=== PATIENT | female | born 1960 | race African-American/Black ===

== ENCOUNTER → 2016-12-12 | Outpatient (CLI) | payer MEDICAID | END | disposition home or self-care (01) | LOC: CHF HDHVI 09:32 | PROVIDERS: ATTEND Internal Medicine Cardiovascular Disease | DX: Z01.810 Encounter for preprocedural cardiovascular examination (principal); I10 Essential (primary) hypertension; K80.80 Other cholelithiasis without obstruction | CPT/HCPCS: 93306 ==

== ENCOUNTER → 2016-12-12 | Outpatient (CLI) | payer MEDICAID | END | disposition home or self-care (01) | LOC: Rad HDHVI 11:02 | PROVIDERS: ATTEND Internal Medicine Cardiovascular Disease | DX: Z01.810 Encounter for preprocedural cardiovascular examination (principal); M25.561 Pain in right knee; M41.86 Other forms of scoliosis, lumbar region; M16.0 Bilateral primary osteoarthritis of hip | CPT/HCPCS: 72110; 73562 ==

== ENCOUNTER → 2016-12-13 | Outpatient (CLI) | payer MEDICAID ==
[~2016-12-13] VITALS: Ht 170.2 cm; Wt 81.6 kg
[~2016-12-13] MED LIST: ADENOSINE 68 MG in GIVE UN-DILUTED 0 ML IV SCH
== END | disposition home or self-care (01) ==
LOC: Rad HDHVI 09:33
PROVIDERS: ATTEND Internal Medicine Cardiovascular Disease
DX: Z01.810 Encounter for preprocedural cardiovascular examination (principal); I10 Essential (primary) hypertension; Z82.49 Family history of ischemic heart disease and other diseases of the circulatory system
CPT/HCPCS: 78452; 93005; 93017; 96374; 96375; A9500; J0153

== ENCOUNTER 2018-11-26 16:09 | Emergency (ER) | payer MEDICAID ==
[~2018-11-26] VITALS: Ht 172.7 cm; Wt 90.7 kg
[2018-11-26 16:27] VITALS: BP 154/89
== END 2018-11-26 17:23 | disposition home or self-care (01) ==
LOC: ER 16:14
DX: Z20.7 Contact with and (suspected) exposure to pediculosis, acariasis and other infestations (principal); I10 Essential (primary) hypertension

== ENCOUNTER 2019-01-23 09:34 | Emergency (ER) | payer MEDICAID ==
[~2019-01-23] VITALS: Ht 170.2 cm; Wt 77.1 kg
[2019-01-23] MEDS ORDERED: cloNIDine HCL 0.1 MG TAB ONE (09:45)
[2019-01-23] MEDS ORDERED: cloNIDine HCL 0.1 MG TAB PO ONE (10:00)
[2019-01-23 11:48] VITALS: BP 155/83
== END 2019-01-23 11:54 | disposition home or self-care (01) ==
LOC: ER 09:34
DX: K52.9 Noninfective gastroenteritis and colitis, unspecified (principal); I10 Essential (primary) hypertension; Z76.0 Encounter for issue of repeat prescription
CPT/HCPCS: 93005

== ENCOUNTER 2019-10-12 14:28 | Inpatient (IN) | payer MEDICAID ==
[~2019-10-12] VITALS: Ht 170.2 cm; Wt 83.6 kg
[2019-10-12 15:39] LABS: Basophils # (auto) 0.1 uL; Basophils % (auto) 0.6 % (0.0-2.0); Eosinophils # (auto) 0 uL; Hematocrit 51.1 % (36.0-46.0); Hemoglobin 17.3 g/dL (12.2-16.2); Lymphocytes # (auto) 3.7 uL; Lymphocytes % (auto) 23.6 % (10.0-50.0); Mean Corpuscular Hemoglobin 31.4 pg (28.0-32.0); Mean Corpuscular Hgb Conc. 33.9 g/dL (32.0-36.0); Mean Corpuscular Volume 92.7 fL (80.0-100.0); Monocytes # (auto) 0.8 uL; Monocytes % (auto) 4.9 % (0.0-12.0); Neutrophils % (auto) 70.9 % (37.0-80.0); Nucleated Red Blood Cells % 0.3 %; Platelet Count (auto) 314 10^3/uL (140-450); Red Blood Cells 5.52 10^6/uL (4.0-5.20); Red Cell Distribution Width 13.3 % (11.8-14.3); White Blood Cell 15.6 10^3/uL (4.4-10.8)
[2019-10-12 15:48] LABS: Albumin 4.4 g/dL (3.4-5.0); BUN/Creatinine Ratio 15.4; Calcium 9.4 mg/dL (8.5-10.1)
[2019-10-12] MEDS ORDERED: SODIUM CHLORIDE 0.9% 1,000 ML IVB ONE (15:49)
[2019-10-12 15:51] LABS: Bilirubin, Total 1.1 mg/dL (0.2-1.0); Total Protein 9.1 g/dL (6.4-8.2)
[2019-10-12 15:55] LABS: Potassium 2.9 mmol/L (3.5-5.1)
[2019-10-12] MEDS ORDERED: PROCHLORPERAZINE EDISYLATE 5 MG/ML 2ML VIAL IV ONE (16:00)
[2019-10-12] MEDS ORDERED: POTASSIUM CHL 20MEQ/100ML 100 ML IV ONE (16:15)
[2019-10-12] MEDS ORDERED: HYDROmorphone HCL 2 MG/ML VL IV ONE (17:00)
[2019-10-12] MEDS ORDERED: NITROGLYCERIN 0.4 MG SL TAB SL PRN (20:15)
[2019-10-12] MEDS ORDERED: MORPHINE SULF INJ 2 MG/ML SYRINGE 1ML IV PRN (20:15)
[2019-10-12] MEDS: SOD CHL 0.9%/ KCL 20MEQ 1,000 ML IV SCH (20:44)
--- NOTE | 2019-10-12 21:22 | NUR ---
MS admit from ER TRAFALGAR,KAMRAN admitted to [facility]. Patient oriented to DEBORAH BAIRES, RN primary RN, unit, room, bed, and unit policies regarding patient care and visiting hours. Patient is alert and oriented, complains of abdominal pain 10/10. Will administer due pain medications. Explained plan of care to patient and to call for assistance as needed, call light placed within reach. All questions and concerns addressed, patient verbalized understanding. Will continue to monitor.
[2019-10-12 21:30] VITALS: BP 168/115
[2019-10-12] MEDS: metroNIDAZOLE 500MG/100ML 100 ML IV SCH (22:19)
[2019-10-12] MEDS: FAMOTIDINE (10MG/ML) 2ML VL IV SCH (22:22)
[2019-10-12] MEDS: hydrALAZINE HCL 20 MG/ML VL IV PRN (22:49)
[2019-10-12 22:57] VITALS: BP 168/115
[2019-10-12] MEDS: ONDANSETRON HCL 4 MG/2 ML VIAL IV PRN (23:00)
[2019-10-12] MEDS: MORPHINE SULF INJ 2 MG/ML SYRINGE 1ML IV PRN (23:00)
[2019-10-12 23:02] LABS: Urine Bacteria FEW /hpf (None Seen); Urine Blood Negative /uL (Negative); Urine Hyaline Cast FEW /lpf (0 - 2); Urine Mucus FEW (None Seen); Urine Specific Gravity 1.021 (1.001-1.035); Urine WBC 6 /hpf (0 - 5)
[2019-10-12 23:09] LABS: Alcohol, Urine < 3.0 mg/dL (0-5); Amphetamine Screen, Urine NEGATIVE (NEGATIVE); Barbiturate Scree,Urine NEGATIVE (NEGATIVE); Benzodiazephine Screen, Urine POSITIVE (NEGATIVE); Cannabinoid Screen, Urine NEGATIVE (NEGATIVE); Cocaine Screen, Urine NEGATIVE (NEGATIVE); Opiate Scree,Urine NEGATIVE (NEGATIVE); Phencyclidine Screen, Urine NEGATIVE (NEGATIVE)
[2019-10-13 00:02] VITALS: BP 141/86
[2019-10-13] MEDS ORDERED: CLON0.2D6 PO (00:53)
[2019-10-13] MEDS: MORPHINE SULF INJ 2 MG/ML SYRINGE 1ML IV PRN ×4 (05:00→23:17)
[2019-10-13 05:17] VITALS: BP 137/82
--- NOTE | 2019-10-13 05:18 | NUR ---
IV Removal/Insertion Discontinued 20g IV to the Right AC with clean sterile technique, catheter tip fully intact. Pressure dressing applied to site. NOTE:Inserted 22g IV to the Left hand. Patient tolerated procedure well.
[2019-10-13 05:58] LABS: Basophils # (auto) 0.1 uL; Basophils % (auto) 0.5 % (0.0-2.0); Eosinophils # (auto) 0 uL; Eosinophils % (auto) 0.1 % (0.0-7.0); Hemoglobin 14.9 g/dL (12.2-16.2); Lymphocytes # (auto) 3.3 uL; Lymphocytes % (auto) 26.9 % (10.0-50.0); Mean Corpuscular Volume 91.2 fL (80.0-100.0); Monocytes # (auto) 0.7 uL; Neutrophils # (auto) 8.1 uL; Neutrophils % (auto) 66.5 % (37.0-80.0); Nucleated Red Blood Cells % 0.3 %; Platelet Count (auto) 247 10^3/uL (140-450); Red Blood Cells 4.82 10^6/uL (4.0-5.20); Red Cell Distribution Width 13.3 % (11.8-14.3); White Blood Cell 12.2 10^3/uL (4.4-10.8)
[2019-10-13] MEDS: metroNIDAZOLE 500MG/100ML 100 ML IV SCH (06:02)
[2019-10-13] MEDS: SOD CHL 0.9%/ KCL 20MEQ 1,000 ML IV SCH ×2 (06:15→15:34)
[2019-10-13 06:19] LABS: Albumin 3.7 g/dL (3.4-5.0); BUN/Creatinine Ratio 19.3; Bilirubin, Total 0.9 mg/dL (0.2-1.0); Calcium 8.5 mg/dL (8.5-10.1); Magnesium 2.8 mg/dL (1.6-2.6); Total Protein 7.4 g/dL (6.4-8.2)
--- NOTE | 2019-10-13 07:15 | NUR ---
RE: Patient belongings Patient's purse with balbuena in it sent home with the patient's son per RYAN Danielson RN.
[2019-10-13 09:00] VITALS: BP 139/88
[2019-10-13] MEDS ORDERED: LEVOFLOXACIN 500MG 100 ML IV SCH (10:00)
[2019-10-13] MEDS: FAMOTIDINE (10MG/ML) 2ML VL IV SCH ×2 (10:04→21:57)
[2019-10-13] MEDS: ONDANSETRON HCL 4 MG/2 ML VIAL IV PRN ×3 (10:16→23:18)
--- NOTE | 2019-10-13 11:30 | NUR ---
MD was at bedside - Dr. Escalante Rectal examine performed by . This RN was at bedside during examine. Patient tolerated well.
[2019-10-13] MEDS ORDERED: POTASSIUM CHL 20 Meq TABLET PO ONE (11:45)
[2019-10-13 12:30] VITALS: BP 141/101
[2019-10-13] MEDS ORDERED: DOCUSATE SOD 100 MG CAP PO PRN (13:15)
--- NOTE | 2019-10-13 15:38 | NUR ---
Patient tolerated lunch meal well Patient denies N/V.
[2019-10-13 17:00] VITALS: BP 147/86
--- NOTE | 2019-10-13 17:15 | NUR ---
PRN pain medication administered per MD order Patient reports pain in the upper medial abdomen. Patient guarding abdomen and moaning. Medication administered per MD order. Respirations even and unlabored respirations, no distress noted. Call light within reach.
--- NOTE | 2019-10-13 18:39 | NUR ---
Closing note patient resting in bed with even and unlabored respirations; eyes closed, no distress noted. Fall precautions in place with bed in lowest locked position with x2 side rails up and call light within reach.
--- NOTE | 2019-10-13 19:29 | NUR ---
Care endorsed to JANETTE Silva.
--- NOTE | 2019-10-13 19:55 | NUR ---
RECEIVED PATIENT FORM DAY SHIFT RN. PATIENT RESTING IN BED. NO S/S OF DISTRESS NOTED. C/O PAIN @ 10/10 AFTER PAIN MEDICATION EARLIER. PATIENT UNDERSTOOD THE SCHEDULE OF PAIN MANAGEMENT AND WILL COME BACK FOR PAIN MEDICATION WHEN THE TIME IS DUE AND PER PATIENT REQUESTS. PATIENT DID C/O ITCHING AFTER MORPHINE. PAGED HOSPITALIST FOR MEDICATION. PATIENT REFUSED SCD FOR NOW. WILL TRY IT LATER. POC INSTRUCTED AND ENCOURAGED PATIENT TO CALL FOR AIR ANTISUBMARINE OFFICER IF NEEDED. BED IN LOWEST POSITION WITH SIDE RAILS UP X 2. CALL DELGADO WITHIN REACH. ALARM ON. CONTINUE TO MONITOR FOR CHANGES Q1H AND PRN.
--- NOTE | 2019-10-13 19:55 | NUR ---
MD Called/paged HOSPITALIST called re:PATIENT ITCHING AFTER MORPHINE, MAY NEED MEDICATION. Waiting for call back. Continue care.
--- NOTE | 2019-10-13 19:57 | NUR ---
HOSPITALIST returned call TELEGRAPH REPEATER TECHNICIAN JEN returned call, updated on patient status and reason for call, orders received. BENADRYL 25MG Q4HR PRN. Continue care.
[2019-10-13] MEDS: diphenhdrAMINE HCL 50 MG/1 ML VL IV PRN (20:35)
--- NOTE | 2019-10-13 21:36 | NUR ---
PATIENT STATED HER ITCHING GETTING BETTER AFTER MEDICATION. CONTINUE TO MONITOR.
[2019-10-13 22:57] VITALS: BP 147/141
--- NOTE | 2019-10-13 23:21 | NUR ---
MEDICATED PATIENT FOR PAIN @ 08/20. CONTINUE TO MONITOR.
[2019-10-14] MEDS: diphenhdrAMINE HCL 50 MG/1 ML VL IV PRN ×3 (01:00→22:22)
--- NOTE | 2019-10-14 01:05 | NUR ---
MEDICATED PATIENT FOR ITCHING. CONTINUE TO MONITOR.
[2019-10-14] MEDS: SOD CHL 0.9%/ KCL 20MEQ 1,000 ML IV SCH (02:49)
--- NOTE | 2019-10-14 03:40 | NUR ---
PATIENT SLEEPING. NO S/S OF DISTRESS NOTED. CONTINUE CARE.
[2019-10-14] MEDS: MORPHINE SULF INJ 2 MG/ML SYRINGE 1ML IV PRN ×3 (05:29→22:23)
[2019-10-14] MEDS: ONDANSETRON HCL 4 MG/2 ML VIAL IV PRN (05:39)
--- NOTE | 2019-10-14 05:40 | NUR ---
PATIENT C/O PAIN @ 08/20. MEDICATED PATIENT ORDERED WITH NAUSEA MEDICATION AND ITCHING MEDICATION. CONTINUE TO MONITOR.
[2019-10-14 05:50] VITALS: BP 171/97
[2019-10-14 06:14] LABS: Basophils # (auto) 0 uL; Basophils % (auto) 0.4 % (0.0-2.0); Eosinophils # (auto) 0.1 uL; Eosinophils % (auto) 0.7 % (0.0-7.0); Hematocrit 40.2 % (36.0-46.0); Hemoglobin 13.7 g/dL (12.2-16.2); Lymphocytes # (auto) 2.6 uL; Lymphocytes % (auto) 36.8 % (10.0-50.0); Mean Corpuscular Hemoglobin 31.6 pg (28.0-32.0); Mean Corpuscular Volume 92.9 fL (80.0-100.0); Monocytes # (auto) 0.4 uL; Monocytes % (auto) 5.7 % (0.0-12.0); Neutrophils # (auto) 3.9 uL; Neutrophils % (auto) 56.4 % (37.0-80.0); Platelet Count (auto) 209 10^3/uL (140-450); Red Blood Cells 4.33 10^6/uL (4.0-5.20); Red Cell Distribution Width 13.3 % (11.8-14.3)
[2019-10-14 06:33] LABS: Albumin 3.3 g/dL (3.4-5.0); Potassium 3.4 mmol/L (3.5-5.1)
[2019-10-14 06:36] LABS: BUN/Creatinine Ratio 9.7; Bilirubin, Total 0.5 mg/dL (0.2-1.0); Total Protein 6.4 g/dL (6.4-8.2)
[2019-10-14] MEDS: hydrALAZINE HCL 20 MG/ML VL IV PRN (08:27)
--- NOTE | 2019-10-14 08:27 | NUR ---
OPENING SHIFT NOTE: PATIENT RESTING IN BED, AWAKE A/OX4 FAMILY AT BEDSIDE. PER NOC RN REPORT, BP RAN 171/97 AND TO RE-CHECK. THIS RN REASSESSED 194/113 HR 98. ADMINISTERED PRN HYDRALAZINE ORDERED. PATIENT C/O HEADACHE AND ITCHING. EDUCATED ON NOC ADMINISTRATION OF BENADRYL, AND WE WILL CONTINUE TO MONITOR. BEDSIDE COMMODE EMPTIED. CALL LIGHT WITHIN REACH, FALL PRECAUTIONS IN PLACE WILL CONTINUE TO MONITOR.
[2019-10-14 09:00] VITALS: BP 194/112
--- NOTE | 2019-10-14 09:29 | NUR ---
VS RE-ASSESSED: TEMP 98.8, BP 126/69 HR 113. PATIENT JUST RETURNED TO BED FROM THE COMMODE.
[2019-10-14] MEDS ORDERED: POTASSIUM CHL 10 Meq TABLET PO ONE (09:45)
[2019-10-14] MEDS ORDERED: METOCLOPRAMIDE HCL 5MG/ml INJ 2ml VIAL IV ONE (10:00)
[2019-10-14] MEDS: FAMOTIDINE (10MG/ML) 2ML VL IV SCH ×2 (10:38→22:22)
[2019-10-14] MEDS: LACTULOSE 20Gm/30ML SOLN PO SCH (10:39)
[2019-10-14] MEDS: amLODIPine BESYLATE 5 MG TAB PO SCH (10:39)
[2019-10-14 13:00] VITALS: BP 106/68
--- NOTE | 2019-10-14 14:55 | NUR ---
PATIENT HAVING MULTIPLE BOWEL MOVEMENTS IN BEDSIDE COMMODE. BROWN, SOFT, SEMI-SOLID, MODERATE AMOUNTS.
--- NOTE | 2019-10-14 15:31 | NUR ---
DR LINDO AT BEDSIDE: PATIENT REPORTING HEADACHE, BUT NO ABDOMINAL PAIN WITH MD PALPATION. PATIENT REQUESTING DILAUDID. MD ALVARADO AWARE, NO NEW ORDERS GIVEN, EDUCATED PAIN ON PAIN SCALE FOR PAIN MEDICATION MANAGEMENT.
--- NOTE | 2019-10-14 15:46 | NUR ---
PATIENT REFUSING ANY PAIN MEDICATION EXCEPT DILAUDID. INFORMED PATIENT DR. ALVARADO WILL NOT PRESCRIBE DILAUDID AT THIS TIME. PATIENT REQUESTING TO SPEAK WITH THE DOCTOR.
[2019-10-14] MEDS ORDERED: FERROUS SULFATE 325 MG TAB PO ONE (17:15)
[2019-10-14] MEDS: METOCLOPRAMIDE HCL 5MG/ml INJ 2ml VIAL IV PRN (18:00)
--- NOTE | 2019-10-14 18:01 | NUR ---
MD ALVARADO TRANSFERRED TO PATIENT'S ROOM PHONE. PATIENT EXPRESSING ANXIETY ABOUT IRON AND POTASSIUM LEVELS. MD REASSURED PATIENT THEY ARE WITHIN NORMAL LIMITS. PATIENT STATES SHE HAS NAUSEA, AND PAIN ALL OVER. AGREEING NOW TO MORPHINE. WILL MEDICATE ORDERED. ORDERS RECEIVED FROM MD ALVARADO.
[2019-10-14 18:04] VITALS: BP 165/79
[2019-10-14] MEDS: cloNIDine HCL 0.1 MG TAB PO PRN (18:17)
--- NOTE | 2019-10-14 18:22 | NUR ---
BP 165/79 ADMINISTERED CLONIDINE PO ORDERED.
--- NOTE | 2019-10-14 19:25 | NUR ---
CARE ENDORSED TO WAYNE SAVAGE.
--- NOTE | 2019-10-14 19:35 | NUR ---
RECEIVED PATIENT FORM DAY SHIFT RN. PATIENT RESTING IN BED WITH EYES CLOSED. NO S/S OF DISTRESS NOTED. C/O PAIN @ 8/10 ON HER KNEES, LEGS, AND BACK AFTER PAIN MEDICATION EARLIER. PATIENT UNDERSTOOD THE SCHEDULE OF PAIN MANAGEMENT AND WILL COME BACK FOR PAIN MEDICATION WHEN THE TIME IS DUE AND PER PATIENT REQUESTS. PATIENT REQUESTED DILAUDID INSTEAD OF MORPHINE. INSTRUCTED PATIENT THAT MD WOULD LIKE HER ON MORPHINE FOR PAIN. PATIENT VERBALIZED UNDERSTANDING. PATIENT DENIED ABD PAIN FOR NOW. POC INSTRUCTED AND ENCOURAGED PATIENT TO CALL FOR FAMILY SERVICE WORKER IF NEEDED. BED IN LOWEST POSITION WITH SIDE RAILS UP X 2. CALL DELGADO WITHIN REACH. ALARM ON. CONTINUE TO MONITOR FOR CHANGES Q1H AND PRN.
--- NOTE | 2019-10-14 22:29 | NUR ---
PATIENT C/O PAIN @ 08/20. MEDICATED PATIENT ORDERED. CONTINUE TO MONITOR.
--- NOTE | 2019-10-14 22:42 | NUR ---
HOSPITALIST Called/paged MEIR LOYA called re:PATIENT REQUESTED ANXIETY MEDICATION. Waiting for call back. Continue care.
--- NOTE | 2019-10-14 22:49 | NUR ---
HOSPITALIST returned call MEIR LOYA returned call, updated on patient status and reason for call, orders received. NO ANXIETY MEDICATION. TEMAZEPAM 15MG ONCE PO. WILL CARRY IT OUT. Continue care.
[2019-10-14] MEDS ORDERED: TEMAZEPAM 15 MG CAP PO ONE (23:00)
[2019-10-14 23:07] VITALS: BP 134/74
[2019-10-15] MEDS: METOCLOPRAMIDE HCL 5MG/ml INJ 2ml VIAL IV PRN ×2 (02:35→22:22)
[2019-10-15] MEDS: MORPHINE SULF INJ 2 MG/ML SYRINGE 1ML IV PRN ×2 (02:36→06:48)
[2019-10-15] MEDS: diphenhdrAMINE HCL 50 MG/1 ML VL IV PRN ×2 (02:36→06:48)
--- NOTE | 2019-10-15 02:40 | NUR ---
PATIENT C/O PAIN @ 06/20. MEDICATED PATIENT ORDERED. CONTINUE TO MONITOR.
[2019-10-15 05:38] VITALS: BP 126/92
--- NOTE | 2019-10-15 06:49 | NUR ---
PATIENT C/O PAIN @ 06/20. MEDICATED PATIENT ORDERED. CONTINUE TO MONITOR.
--- NOTE | 2019-10-15 07:45 | NUR ---
RECEIVED REPORT AND ASSUMED CARE OF PT. A/OX4. DENIED S/S ACUTE DISTRESS. UPDATE PT WITH POC. BED AT LOWEST POSITION. CALL LIGHT AND BELONGINGS WITHIN REACH. WILL CONT TO MONITOR.
[2019-10-15] MEDS ORDERED: HYDROcodone-ACET 5/325MG TAB PO PRN (08:45)
[2019-10-15 08:48] VITALS: BP 131/85
[2019-10-15 09:43] LABS: Calcium 8.5 mg/dL (8.5-10.1); Potassium 3.3 mmol/L (3.5-5.1)
[2019-10-15 09:45] LABS: BUN/Creatinine Ratio 7.5
[2019-10-15] MEDS: FAMOTIDINE 20 MG TAB PO SCH ×2 (09:57→22:16)
[2019-10-15] MEDS: LACTULOSE 20Gm/30ML SOLN PO SCH (09:59)
[2019-10-15] MEDS: amLODIPine BESYLATE 5 MG TAB PO SCH (09:59)
[2019-10-15] MEDS: LORazepam 0.5 MG TAB PO PRN ×2 (10:22→22:16)
[2019-10-15 12:00] VITALS: BP 142/72
[2019-10-15] MEDS ORDERED: POTASSIUM CHL 20 Meq TABLET PO ONE (12:00)
[2019-10-15 17:00] VITALS: BP 131/77
--- NOTE | 2019-10-15 19:40 | NUR ---
RECEIVED PATIENT FORM DAY SHIFT RN. PATIENT RESTING IN BED AND TALKING ON THE PHONE. NO S/S OF DISTRESS NOTED. C/O PAIN @ 08/20. PATIENT REFUSED TO TAKE NORCO FOR PAIN. AND SHE STATED SHE TRYING NOT TO TAKE PAIN MEDICATION. INSTRUCTED TO CALL FOR IT IF SHE COULD NOT TOLERATE THE PAIN. PATIENT VERBALIZED UNDERSTANDING. POC INSTRUCTED AND ENCOURAGED PATIENT TO CALL FOR DESIGN/ANIMATION INSTRUCTOR IF NEEDED. BED IN LOWEST POSITION WITH SIDE RAILS UP X 2. CALL DELGADO WITHIN REACH. ALARM ON. CONTINUE TO MONITOR FOR CHANGES Q1H AND PRN.
--- NOTE | 2019-10-15 22:25 | NUR ---
MEDICATED PATIENT TO NAUSEA AND ANXIETY ORDERED. CONTINUE TO MONITOR.
[2019-10-15 23:35] VITALS: BP 139/84
--- NOTE | 2019-10-16 02:39 | NUR ---
PATIENT SLEEPING. NO S/S OF DISTRESS NOTED. CONTINUE CARE
[2019-10-16 04:50] VITALS: BP 117/94
--- NOTE | 2019-10-16 07:20 | NUR ---
Opening Shift Note Assumed care of patient, awake and alert. No S/S of distress/SOB or pain. Instructed on POC and to call for assist PRN, will continue to monitor for changes Q1hr and PRN. Bed locked in lowest position with two side rails up and call light in reach.
[2019-10-16 08:00] VITALS: BP 173/111
[2019-10-16 08:48] VITALS: BP 173/111
--- NOTE | 2019-10-16 09:50 | NUR ---
DR JENNY DENG. TELE PSYCH CONSULT PLACED.
[2019-10-16] MEDS ORDERED: POTASSIUM CHL 20 Meq TABLET PO SCH (10:00)
[2019-10-16] MEDS: LACTULOSE 20Gm/30ML SOLN PO SCH (10:00)
[2019-10-16] MEDS ORDERED: CLO01T PO (10:17)
[2019-10-16] MEDS ORDERED: LOSA25TA38 PO (10:17)
[2019-10-16] MEDS ORDERED: DOCU100C8 PO (10:17)
[2019-10-16] MEDS ORDERED: AML5T PO (10:17)
[2019-10-16] MEDS: amLODIPine BESYLATE 5 MG TAB PO SCH (10:30)
[2019-10-16] MEDS ORDERED: LOSARTAN POTASSIUM 25 MG TAB PO ONE (10:30)
[2019-10-16] MEDS: FAMOTIDINE 20 MG TAB PO SCH (10:30)
--- NOTE | 2019-10-16 11:30 | NUR ---
TELE PSYCH PLACED AND COMPLETE WILL WAIT FOR REPORT.
--- NOTE | 2019-10-16 12:07 | NUR ---
NUTRITION ASSESSMENT NOTES Please refer to link notes of nutrition screen form filed under the intervention section of the plan of care for further details. Est. Needs: 1650 kcal to 2100 kcal (20-25 kcal/kgBW), 67 gms to 84 gms pro (0.8-1.0 gms/kgBW). Will continue to monitor pertinent labs and reassess nutrient need prn Thank you. Addendum: 10/16/19 at [address] Amended: Links added.
[2019-10-16] MEDS: cloNIDine HCL 0.1 MG TAB PO PRN (12:21)
[2019-10-16 12:30] VITALS: BP 165/105
[2019-10-16] MEDS ORDERED: ESCI10TA PO (13:30)
[2019-10-16] MEDS ORDERED: ESCI5TAB PO (13:30)
[2019-10-16 13:46] VITALS: BP 165/105
--- NOTE | 2019-10-16 14:26 | NUR ---
Discharge instructions given as ordered. Encourage to follow up with PMD as instructed. All questions and concerns addressed. Patient verbalized understanding. Medication reconciliation form completed and copy given to patient. No Home medications held in Pharmacy and none to be returned to patient, and no needed vaccines given. IV removed with catheter intact, pressure dressing applied. Patient taken to vehicle via wheelchair with all personal belongings, accompanied by family member. No distress noted at time of departure. Prescriptions in hand.
[2019-10-17] MEDS ORDERED: LOSARTAN POTASSIUM 25 MG TAB PO SCH (10:00)
== END 2019-10-16 14:30 | disposition home or self-care (01) | DRG 254 ==
LOC: ER 14:35 → OVERFLOW 14:36 → CENTRAL 21:17
PROVIDERS: ADMIT Nurse Practitioner Acute Care; ATTEND Internal Medicine
DX: K59.00 Constipation, unspecified (principal); N17.0 Acute kidney failure with tubular necrosis; E87.0 Hyperosmolality and hypernatremia; I16.0 Hypertensive urgency; E86.0 Dehydration; I10 Essential (primary) hypertension; E87.6 Hypokalemia; R94.5 Abnormal results of liver function studies; K57.90 Diverticulosis of intestine, part unspecified, without perforation or abscess without bleeding; F43.9 Reaction to severe stress, unspecified; F32.9 Major depressive disorder, single episode, unspecified; F41.0 Panic disorder [episodic paroxysmal anxiety]; Z90.49 Acquired absence of other specified parts of digestive tract
CPT/HCPCS: 36415; 71045; 74176; 76705; 80048; 80053; 80307; 81001; 83690; 83735; 84132; 85025; 87040; 87086; 93306; 96361; 96365; 96367; 96375; G0378; J1956; J2405; J3480; J3490